=== PATIENT | female | born 1975 | race Two or more races ===

== ENCOUNTER 2016-05-06 17:14 | Emergency (ER) | payer MEDICAID ==
[~2016-05-06] VITALS: Ht 162.6 cm; Wt 75.0 kg
[2016-05-06 17:17] VITALS: Ht 162.6 cm; Wt 75.0 kg
[2016-05-06] MEDS ORDERED: DIPHTH/TET/ACEL PERTUSS (ADULT) 0.5 ML VIAL IM* ONE (19:00)
[2016-05-06] MEDS ORDERED: LIDOCAINE 1% (MDV) 20 ML INJ SC ONE (19:00)
[2016-05-06] MEDS ORDERED: BACTDS PO (19:24)
[2016-05-06] MEDS ORDERED: IBUP-1542 PO (19:25)
[2016-05-06] MEDS ORDERED: CEPH-443 PO (19:25)
--- NOTE | 2016-05-06 19:30 | ERD ---
ER Documentation Chief Complaint Date/Time DATE: 05/06/16 TIME: 19:26 Chief Complaint UPPER BACK PAIN X 2 WEEKS , ABCESS HPI Patient is a 41-year-old female who presents to the emergency department with upper back pain 2 weeks. Patient states that she noted a mass on her back that has been growing in size. Patient states that 1 of her family members did attempt to drain it with a needle. She states that she "sterilized the needle. " Patient reports some drainage however the mass continues to grow in size. Patient denies any fevers, chills, nausea, vomiting. Patient states her pain level is a 7 out of 10. Patient took Advil with some relief of symptoms. Patient states that her pain is constant. Patient denies any saddle anesthesia , stool incontinence, urinary incontinence, IV drug use or recent trauma. ROS All systems reviewed and are negative except as per history of present illness. Medications Home Meds Active Scripts Ibuprofen* (Motrin*) 600 Mg Tab, 600 MG PO Q6H Y for PAIN AND OR ELEVATED TEMP, #30 TAB Prov:MARCELLO KENNY-C 05/06/16 Cephalexin* (Keflex*) 500 Mg Capsule, 500 MG PO QID for 10 Days, CAP Prov:MARCELLO KENNY-C 05/06/16 Sulfamethoxazole-Trimethoprim* (Bactrim* DS) 800-160 Mg Tab, 1 TAB PO BID for 10 Days, TAB Prov:MARCELLO KENNY-C 05/06/16 PMhx/Soc Medical and Surgical Hx: pt denies Medical Hx, pt denies Surgical Hx FmHx Family History: No diabetes Physical Exam Vitals Vital Signs Date Time Temp Pulse Resp B/P Pulse Ox O2 Delivery O2 Flow Rate FiO2 05/06/16 19:51 97.4 65 18 132/72 98 Room Air 05/06/16 17:17 97.4 88 18 146/74 98 Physical Exam GENERAL: Well-developed, well-nourished female. Appears in no acute distress. HEAD: Normocephalic, atraumatic. EYES: Pupils are equally reactive bilaterally. EOMs grossly intact. No conjunctival erythema. ENT: Moist mucous membranes. No uvula deviation. No kissing tonsils. NECK: Supple. No meningismus. Normal range of motion of the neck. LUNG: Clear to auscultation bilaterally. No rhonchi, wheezing, rales or coarse breath sounds. HEART: Regular rate and rhythm. No murmurs, rubs or gallops. ABDOMEN: No scars, ecchymosis or rashes noted. Soft, nontender, and nondistended. Positive bowel sounds in all four quadrants. No rebound tenderness , no guarding. (-) McBurney's point tenderness. No CVA tenderness. BACK: No midline tenderness. + abscess formation noted in the mid upper back. Area is tender to palpation. Area is erythematous and swollen. Area is fluctuant and indurated. No lymphatic streaking or warmth. EXTREMITIES: Equal pulses bilaterally. No peripheral clubbing, cyanosis or edema. No unilateral leg swelling. NEUROLOGIC: Alert and oriented. Moving all four extremities without any difficulty. Normal speech. Steady gait. SKIN: Normal color. Warm and dry. No rashes or lesions. Results 24 hrs Current Medications Medications (Trade) Dose Ordered Sig/Shade Route PRN Reason Start Time Stop Time Status Last Admin Dose Admin Lidocaine (Xylocaine 1% (Mdv) 20 ml) 20 ml ONCE ONCE SC 05/06/16 19:00 05/06/16 19:01 DC Diphtheria/ Tetanus/Acell Pertussis (Adacel) 0.5 ml ONCE ONCE IM* 05/06/16 19:00 05/06/16 19:01 DC 05/06/16 18:55 Procedures/MDM INCISION AND DRAINAGE: The patient was verbally consented prior to procedure. Patient was explained the risks, benefits and alternatives to this procedure. Location: Upper back Abscess size: 4 cm circular Anesthesia: local 1% lidocaine, 4 cc Preparation: The area was prepped in a sterile fashion using betadine x3 cleanses. A sterile field was prepared. Technique: A sterile 11 blade scalpel was used to make a 1 cm linear incision into the abscess. Procedure: A midline abscess incision was made using a sterile scalpel in a linear fashion. Purulent material was expressed with direct pressure. Blunt probing was used to break up loculations. Bleeding was minimal. Packing: none The patient tolerated the procedure well with no complications. The wound was dressed in sterile gauze. The patient was neurovascularly intact post- procedure. Post-procedural wound care was discussed with the patient. Medical Decision Making: This is a 41-year-old female presented with an abscess in her right upper back. Patient states that the abscess has been present for for 2 weeks. Patient did report attempting to drain abscess at home by herself. Vital signs were reviewed. Patient is afebrile. Incision and drainage was performed here in the emergency department. Purulent discharge was expressed from the wound site. Blunt probing was used to break up loculations. Bleeding was minimal. Patient was given her tetanus vaccination here in the emergency department. Low suspicion for deep space infection, necrotizing fasciitis, lymphangitis. Prescriptions: Keflex, Bactrim, ibuprofen Patient advised to complete full course of antibiotics. A prescription for Ibuprofen was provided for pain/fever control. Discharge: At this time, the patient is stable for discharge and outpatient management. Post-procedural wound care was discussed with the patient. The patient has been advised to return to the ER in 2 days for a wound check. I have instructed the patient to promptly return to the ER for any new or worsening symptoms including increasing pain, fever, warmth, redness or swelling. The patient and/ or family expressed understanding of and agreement with this plan. All questions were answered. Home care instructions were provided. Departure Diagnosis: Primary Impression: Abscess Additional Impression: Encounter for incision and drainage procedure Condition: Stable Patient Instructions: Abscess, Incision And Drainage Referrals: [facility] YOU HAVE RECEIVED A MEDICAL SCREENING EXAM AND THE RESULTS INDICATE THAT YOU DO NOT HAVE A CONDITION THAT REQUIRES URGENT TREATMENT IN THE EMERGENCY DEPARTMENT. FURTHER EVALUATION AND TREATMENT OF YOUR CONDITION CAN WAIT UNTIL YOU ARE SEEN IN YOUR DOCTORS OFFICE WITHIN THE NEXT 1-2 DAYS. IT IS YOUR RESPONSIBILITY TO MAKE AN APPOINTMENT FOR FOLOW-UP CARE. IF YOU HAVE A PRIMARY DOCTOR --you should call your primary doctor and schedule an appointment IF YOU DO NOT HAVE A PRIMARY DOCTOR YOU CAN CALL OUR PHYSICIAN REFERRAL HOTLINE AT IF YOU CAN NOT AFFORD TO SEE A PHYSICIAN YOU CAN CHOSE FROM THE FOLLOWING [facility] [address] [facility] [address] [facility]. [facility] [address] [facility] [address] [facility] [address] [facility]. [facility] [address] [facility]. [facility] YOU HAVE RECEIVED A MEDICAL SCREENING EXAM AND THE RESULTS INDICATE THAT YOU DO NOT HAVE A CONDITION THAT REQUIRES URGENT TREATMENT IN THE EMERGENCY DEPARTMENT. FURTHER EVALUATION AND TREATMENT OF YOUR CONDITION CAN WAIT UNTIL YOU ARE SEEN IN YOUR DOCTORS OFFICE WITHIN THE NEXT 1-2 DAYS. IT IS YOUR RESPONSIBILITY TO MAKE AN APPOINTMENT FOR FOLOW-UP CARE. IF YOU HAVE A PRIMARY DOCTOR --you should call your primary doctor and schedule and appointment IF YOU DO NOT HAVE A PRIMARY DOCTOR YOU CAN CALL OUR PHYSICIAN REFERRAL HOTLINE AT . IF YOU CAN NOT AFFORD TO SEE A PHYSICIAN YOU CAN CHOSE FROM THE FOLLOWING [facility] INSTITUTIONS: [facility] [address] [place] [address] [facility] [address] [place] [address] [facility] [address] [place] [address] Additional Instructions: She was advised to return the emergency department in 2 days for wound recheck. Return sooner for any worsening symptoms including but not limited to redness , swelling, warmth, fever, chills. Call your primary care doctor TOMORROW for an appointment during the next 1-2 days.See the doctor sooner or return here if your condition worsens before your appointment time. MARCELLO KENNY PA-C May 06, 2016 19:30
[2016-05-06 19:51] VITALS: BP 132/72; PULSE 65; RESP 18; TEMP 97.4
== END 2016-05-06 19:52 | disposition home or self-care (01) ==
LOC: FTE 17:14
DX: L02.212 Cutaneous abscess of back [any part, except buttock and flank] (principal); Z23 Encounter for immunization
CPT/HCPCS: 10061; 90471; 90715; Z7502; Z7610

== ENCOUNTER 2016-05-08 10:17 | Emergency (ER) | payer MEDICAID ==
[~2016-05-08] VITALS: Wt 72.0 kg
[~2016-05-08 10:17] MED LIST: BACTDS PO; CEPH-443 PO; IBUP-1542 PO
[2016-05-08] MEDS ORDERED: LIDOCAINE 1% (MDV) 20 ML INJ SC ONE (12:00)
--- NOTE | 2016-05-08 12:49 | ERD ---
ER Documentation Chief Complaint Date/Time DATE: 05/08/16 TIME: 12:41 Chief Complaint RECHECK OF ABSCESS HPI 41-year-old female was seen here 2 days ago for a abscess on her upper back. She is here for 2 day recheck. Patient stated that she still has the pain, she is taking antibiotics as prescribed. Denies fever or chills. ROS All systems reviewed and are negative except as per history of present illness. Medications Home Meds Active Scripts Ibuprofen* (Motrin*) 600 Mg Tab, 600 MG PO Q6H Y for PAIN AND OR ELEVATED TEMP, #30 TAB Prov:MARCELLO KENNY PA-C 05/06/16 Cephalexin* (Keflex*) 500 Mg Capsule, 500 MG PO QID for 10 Days, CAP Prov:MARCELLO KENNY PA-C 05/06/16 Sulfamethoxazole-Trimethoprim* (Bactrim* DS) 800-160 Mg Tab, 1 TAB PO BID for 10 Days, TAB Prov:MARCELLO KENNY PA-C 05/06/16 PMhx/Soc Medical and Surgical Hx: pt denies Medical Hx, pt denies Surgical Hx Hx Alcohol Use: Yes Hx Substance Use: No Hx Tobacco Use: No Smoking Status: Never smoker Physical Exam Vitals Vital Signs Date Time Temp Pulse Resp B/P Pulse Ox O2 Delivery O2 Flow Rate FiO2 05/08/16 10:23 98.0 66 18 134/65 99 Physical Exam General impression: Well-developed, well-nourished. Alert, oriented, in no acute distress Head: Normocephalic, atraumatic. Neck: Supple, nontender. No lymphadenopathy. No nuchal rigidity. Respiration: Normal respiratory effort. Lungs clear to auscultate bilaterally. No wheezes, rales or rhonchi. Cardiovascular: Regular rate and rhythm. No murmurs or extra heart sounds. Back: Normal to inspection. No midline spine tenderness. No CVA tenderness. Neuro: Mental status normal, speech normal. [employer] grossly intact. Skin: Normal turgor. Infected sebaceous cyst noted in the mid upper back, with minimal erythema. Previous incision noted with purulent discharge. Psych: Normal mood and affect. Results 24 hrs Current Medications Medications (Trade) Dose Ordered Sig/Shade Route PRN Reason Start Time Stop Time Status Last Admin Dose Admin Lidocaine (Xylocaine 1% (Mdv) 20 ml) 20 ml ONCE ONCE SC 05/08/16 12:00 05/08/16 12:01 DC Procedures/MDM Procedure note: Incision and Drainage Verbal consent obtained for incision and drainage of patient's abscess. The area was prepped with Betadine. Lidocaine 1% was infiltrated for local anesthesia. After appropriate anesthesia, previous incision was enlarged using # 11 blade. Copious amount of purulent discharge and sebum was drained from the abscess. The abscess was probed for loculation. It was then irrigated with 60 ml of NS solution. The sac of the sebaceous cyst was flushed out. Iodoform 1/4 " packing tape was inserted into the abscess. The wound was then cleaned and dressed. Patient tolerated procedure well. Well-appearing 41-year-old female presents to ED for 2 day recheck of incision and drainage. Patient noted to have significant abscess remaining. The previous incision was revised, further healing discharge was drained along with sebum. I was able to remove the sebaceous cyst sac completely. No sign of cellulitis. Patient appears well, stable for discharge and outpatient management. Patient advised to continue take the antibiotics previously prescribed until all finished. Medical decision making shared with patient and family. Education provided to patient and family. Patient and family expressed understanding of the plan. Medications on discharge: None. Follow-up: Return to eating 2 days for wound check and dressing change. Departure Diagnosis: Primary Impression: Infected sebaceous cyst Condition: Good Patient Instructions: Sebaceous Cyst, Infected (I And D) Referrals[facility] Usted se chaves hecho un examen mdico de control que le indica que no est en agata condicin que requiera tratamiento urgente en el Departamento de Emergencia. Un estudio ms profundo y el tratamiento de palacios condicin pueden esperar sin ningn riesgo hasta que usted sea atendida/o en el consultorio de palacios mdico o agata cl jassi. Es responsabilidad suya arreglar agata richard para el seguimiento del gela. MANEJO DE CONDICIONES NO URGENTES EN EL FUTURO 1) Si usted tiene un mdico de atencin primaria: Usted debera llamar a palacios mdico de atencin primaria antes de venir al departamento de emergencia. Despus de las horas de consultorio, palacios doctor o palacios asociado/a est disponible por telfono. El mdico o enfermero de neris en el servicio telefnico puede asesorarle por johan medio para atender el problema, o gela contrario se puede programar agata richard. 2) Si usted no tiene un mdico de atencin primaria: Llame al mdico o clnica de referencia que aparece abajo claude las horas de consultorio para hacer agata richard para que le vean. CLINICAS: [place] [address] [phone] [facility] [phone] [place] [address] [phone] [place] [address] [phone] [place] [address] [phone] [facility]. [phone] [address] Additional Instructions: Regrese a estas instalaciones dentro de [employer] [facility] para un examen de seguimiento.Regrese antes si palacios condicin se empeora. [place] ARENAS NP May 08, 2016 12:49
[2016-05-08 13:24] VITALS: BP 118/74; PULSE 80; RESP 18; TEMP 98.6
== END 2016-05-08 13:25 | disposition home or self-care (01) ==
LOC: FTE 10:17
DX: L72.3 Sebaceous cyst (principal); L08.89 Other specified local infections of the skin and subcutaneous tissue
CPT/HCPCS: 10061; Z7502; Z7610

== ENCOUNTER 2016-05-10 08:48 | Emergency (ER) | payer MEDICAID ==
[~2016-05-10] VITALS: Ht 157.5 cm; Wt 74.0 kg
[2016-05-10 08:56] VITALS: Ht 157.5 cm; Wt 74.0 kg
--- NOTE | 2016-05-10 10:31 | ERD ---
ER Documentation Chief Complaint Date/Time DATE: 05/10/16 TIME: 10:27 Chief Complaint recheck R shoulder pain x 4 days HPI 41-year-old female returns to the emergency department for follow-up and wound care. Patient was initially seen at this emergency department 5 days ago for pain and swelling of the upper back. At that time an incision and drainage of an epidermal cyst was performed. Wound was packed and patient returned 2 days later for a repacking and dressing change. Patient again returns today for dressing change and wound packing. Patient denies any worsening symptoms and states that her pain has improved. Patient states she has been compliant with antibiotic therapy regimen and denies any increased pain, swelling, redness, fever, chills, nausea, vomiting. ROS All systems reviewed and are negative except as per history of present illness. Medications Home Meds Active Scripts Hydrocodone/Acetaminophen ([place] 5-325 Tablet) 1 Each Tablet, 1 EACH PO Q8 for 3 Days, TAB Prov:PAPO TRIMBLE PA-C 05/10/16 Ibuprofen* (Motrin*) 600 Mg Tab, 600 MG PO Q6H Y for PAIN AND OR ELEVATED TEMP, #30 TAB Prov:MARCELLO KENNY PA-C 05/06/16 Cephalexin* (Keflex*) 500 Mg Capsule, 500 MG PO QID for 10 Days, CAP Prov:MARCELLO KENNY PA-C 05/06/16 Sulfamethoxazole-Trimethoprim* (Bactrim* DS) 800-160 Mg Tab, 1 TAB PO BID for 10 Days, TAB Prov:MARCELLO KENNY PA-C 05/06/16 PMhx/Soc Medical and Surgical Hx: pt denies Medical Hx, pt denies Surgical Hx Hx Alcohol Use: Yes Hx Substance Use: No Hx Tobacco Use: No Physical Exam Vitals Vital Signs Date Time Temp Pulse Resp B/P Pulse Ox O2 Delivery O2 Flow Rate FiO2 05/10/16 08:56 98.1 69 18 116/63 100 Physical Exam Const: Well-developed, well-nourished, in no acute distress Head: Atraumatic Eyes: Normal Conjunctiva ENT: Normal External Ears, Nose and Mouth. Neck: Full range of motion..~ No meningismus. Resp: Clear to auscultation bilaterally Cardio: Regular rate and rhythm, no murmurs Abd: Soft, non tender, non distended. Normal bowel sounds Skin: 1 centimeter opening midline upper back. No overlying erythema or edema. Scant amount of purulent discharge expressed during dressing change. Mild tenderness to palpation. No evidence of cyanosis. Back: No midline or flank tenderness Ext: No cyanosis, or edema Neur: Awake and alert Psych: Normal Mood and Affect Results 24 hrs Current Medications Medications (Trade) Dose Ordered Sig/Shade Route PRN Reason Start Time Stop Time Status Last Admin Dose Admin Ibuprofen (Motrin) 600 mg ONCE ONCE PO 05/10/16 11:00 05/10/16 11:00 DC 05/10/16 10:51 Procedures/MDM Abscess wound care and inspection performed by me: Location: 1 centimeter opening midline upper back. No overlying erythema or edema. Scant amount of purulent discharge expressed Anesthesia: None Technique: Cleansed with Betadine swab Packin cm iodoform packing strip 1/4 inch placed into wound. 4 inch Tegaderm film placed over gauze Complications: Neurovascularly intact post procedure 48 hour wound check. Scar minimization instructions given. Patient's skin symptoms have stabilized while they have been evaluated in the department and are appropriate for outpatient care and work up. Exam and w/u not consistent w/ sepsis, deep space infection, or foreign body. Patient tolerated resting change well and received Motrin for pain. Patient denies any complaints post procedure. At this time patient reports improvement of symptoms and denies any fever, chills, or increased pain. I have low suspicion for serious systemic bacterial infection and patient is stable for discharge. Patient to continue antibiotic therapy and return if symptoms worsen. Otherwise recheck in 48 hours for wound care, dressing change and packing removal. Based on patient's history of present illness and physical examination the decision was made to discharge. The patient was re-evaluated after ED treatment and stabilizing measures, and symptoms have improved. There is no evidence of life threatening injuries or illnesses at this time. On re-examination, patient resting in no distress, stable vital signs, reports feeling better and safe for discharge with outpatient follow up with PMD in 1-2 days. Patient given return precautions. PAPO TRIMBLE PA-C May 10, 2016 10:31
[2016-05-10] MEDS ORDERED: HYDR-906 PO (10:49)
[2016-05-10] MEDS ORDERED: IBUPROFEN 600 MG TAB PO ONE (11:00)
== END 2016-05-10 10:57 | disposition home or self-care (01) ==
LOC: FTE 08:48
DX: Z48.00 Encounter for change or removal of nonsurgical wound dressing (principal)
CPT/HCPCS: Z7502; Z7610; 99283

== ENCOUNTER 2016-05-12 11:56 | Emergency (ER) | payer MEDICAID ==
[~2016-05-12] VITALS: Wt 73.5 kg
[~2016-05-12 11:56] MED LIST changes: +HYDR-906 PO
--- NOTE | 2016-05-12 13:23 | ERD ---
ER Documentation Chief Complaint Date/Time DATE: 05/12/16 TIME: 13:21 Chief Complaint UPPER BACK ABSCESS. HERE FOR 2 DAY WOUND CHECK HPI This is a 41-year-old female presents to the ER for recheck of her abscess. Wound was packed 2 days ago. This is a second time that wound was packed. She denies any fevers or chills. She states that she feels significantly better. She has been taking her antibiotics as prescribed. ROS 12 point review of systems was done, all negative except per HPI. Medications Home Meds Active Scripts Hydrocodone/Acetaminophen ([place] 5-325 Tablet) 1 Each Tablet, 1 EACH PO Q8 for 3 Days, TAB Prov:PAPO TRIMBLE PA-C 05/10/16 Ibuprofen* (Motrin*) 600 Mg Tab, 600 MG PO Q6H Y for PAIN AND OR ELEVATED TEMP, #30 TAB Prov:MARCELLO KENNY PA-C 05/06/16 Cephalexin* (Keflex*) 500 Mg Capsule, 500 MG PO QID for 10 Days, CAP Prov:MARCELLO KENNY PA-C 05/06/16 Sulfamethoxazole-Trimethoprim* (Bactrim* DS) 800-160 Mg Tab, 1 TAB PO BID for 10 Days, TAB Prov:MARECLLO KENNY PA-C 05/06/16 PMhx/Soc Medical and Surgical Hx: pt denies Medical Hx, pt denies Surgical Hx Hx Alcohol Use: Yes Hx Substance Use: No Hx Tobacco Use: No Smoking Status: Never smoker Physical Exam Vitals Vital Signs Date Time Temp Pulse Resp B/P Pulse Ox O2 Delivery O2 Flow Rate FiO2 05/12/16 11:58 99.0 69 20 115/65 98 Physical Exam GENERAL: The patient is well developed and appropriate for usual state of health , in no apparent distress. HEENT: Atraumatic. CHEST: Clear to auscultation bilaterally. There are no rales, wheezes or rhonchi. HEART: Regular rate and rhythm. No murmurs, clicks, rubs or gallops NEURO: Alert and oriented. SKIN: A healing abscess in the upper back no surrounding erythema no discharge is seen Procedures/MDM This is a 41-year-old female presents to the ER for recheck of her abscess. At this time packing was removed successfully by myself. There was no surrounding erythema or discharge to suggest further infection. Patient states that her pain is mostly gone and she has been afebrile. Patient is to continue with antibiotics as prescribed. She is to follow-up with her primary care doctor within 1-2 days return to ER sooner if symptoms worsen. My medical decision making was discussed with the patient she understands and agrees with plan. Departure Diagnosis: Primary Impression: Encounter for wound re-check Condition: Stable Patient Instructions: Wound Care Referrals: [facility] (PCP) Additional Instructions: Call your primary care doctor TOMORROW for an appointment during the next 1-2 days.See the doctor sooner or return here if your condition worsens before your appointment time. BARON MCDONALD May 12, 2016 13:23
== END 2016-05-12 13:25 | disposition home or self-care (01) ==
LOC: FTE 11:56
DX: Z48.01 Encounter for change or removal of surgical wound dressing (principal)
CPT/HCPCS: 99281